=== PATIENT | female | born 1990 | race American Indian/Alaskan Native ===

== ENCOUNTER 2018-10-21 19:53 | Emergency (ER) | payer OTHER ==
[2018-10-21 20:01] VITALS: BP 123/76
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
[2018-10-21] MEDS ORDERED: IBUPROFEN PO ONE (22:14)
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
== END 2018-10-22 01:00 | disposition home or self-care (01) ==
LOC: ED 19:53
DX: M54.2 Cervicalgia (principal); R51 Headache; Z79.899 Other long term (current) drug therapy; Z91.013 Allergy to seafood; Z91.018 Allergy to other foods; V49.49XA Driver injured in collision with other motor vehicles in traffic accident, initial encounter; Y93.89 Activity, other specified; Y92.410 Unspecified street and highway as the place of occurrence of the external cause; Y99.8 Other external cause status
CPT/HCPCS: 72040